=== PATIENT | female | born 1950 | race Hispanic/Latino ===

== ENCOUNTER → 2020-01-03 | Outpatient (CLI) | payer MEDICARE, OTHER ==
--- NOTE | 2020-01-04 08:32 | Diagnostic Imaging Report ---
Exam: Bone mineral density study. History: Osteoporosis screening, postmenopausal status Comparison: None Discussion: Evaluation of the left hip and lumbar spine was performed utilizing DEXA Hologic bone densitometer. The study is technically adequate. The patient's fracture risk is compared to an age-matched control. The patient denies prior surgery/fracture of the spine, hips or forearm. Left hip femoral neck bone mineral density: 0.673 g/cm2, T-score is -1.6, Z-score is 0.3. Left hip total bone mineral density: 0.753 g/cm2, T-score is -1.6, Z-score is 0.0. Lumbar spine total bone mineral density: 0.837 gm/cm2, T-score is -1.9, Z-score is 0.3. No previous comparison. Impression: 1. Bone mineralization by WHO Classification of the left hip is osteopenia, the fracture risk is increased. 2. Bone mineralization by WHO Classification of the lumbar spine is osteopenia, the fracture risk is increased. Recommendations: Medical evaluation for secondary causes of low bone mineral density may be appropriate. Correlate clinically for the necessity and timing of the next bone mineral density study. Signed by: Dr. Oskar Taylor MD on 01/04/2020 8:29 AM
== END ==
LOC: MAMMO 08:47
PROVIDERS: ATTEND Internal Medicine
DX: Z12.31 Encounter for screening mammogram for malignant neoplasm of breast (principal); M94.9 Disorder of cartilage, unspecified
CPT/HCPCS: 77067; 77080

== ENCOUNTER → 2020-03-30 | Outpatient (CLI) | payer OTHER ==
[~2020-03-30] MED LIST: COVID-19 VACC, MRNA(MODERNA)/PF 100 MCG/0.5 ML VIAL IM ONE
== END ==
LOC: VACCPMC 13:59
DX: Z23 Encounter for immunization (principal); Z20.822 Contact with and (suspected) exposure to COVID-19
CPT/HCPCS: 91301

== ENCOUNTER → 2020-04-23 | Outpatient (CLI) | payer OTHER | END | disposition home or self-care (01) | LOC: VACCPMC 09:31 | DX: Z23 Encounter for immunization (principal); Z20.822 Contact with and (suspected) exposure to COVID-19 | CPT/HCPCS: 91301 ==

== ENCOUNTER → 2020-12-29 | Outpatient (CLI) | payer OTHER, MEDICARE | LOC: VACCPMC 15:19 | DX: Z23 Encounter for immunization (principal); Z20.822 Contact with and (suspected) exposure to COVID-19 | CPT/HCPCS: 91301 ==

== ENCOUNTER → 2021-09-10 | Outpatient (CLI) | payer MEDICARE | LOC: MAMMO 12:56 | PROVIDERS: ATTEND Internal Medicine | DX: Z12.31 Encounter for screening mammogram for malignant neoplasm of breast (principal) | CPT/HCPCS: 77067 ==

== ENCOUNTER → 2023-11-11 | Outpatient (REF) | payer MEDICARE | LOC: MAMMO 09:33 | PROVIDERS: ATTEND Internal Medicine | DX: Z12.31 Encounter for screening mammogram for malignant neoplasm of breast (principal); M85.88 Other specified disorders of bone density and structure, other site; N95.9 Unspecified menopausal and perimenopausal disorder | CPT/HCPCS: 77067; 77080 ==